=== PATIENT | male | born 1990 | race American Indian/Alaskan Native ===

== ENCOUNTER 2018-09-19 20:53 | Inpatient (IN) | payer OTHER ==
[2018-09-19] MEDS ORDERED: NACL 0.9% 1000 ML 1,000 ML IV ONE ×2 (21:06→21:11)
[2018-09-19] MEDS ORDERED: HumuLIN R IV ONE (21:06)
[2018-09-19] MEDS ORDERED: ZOFRAN IV ONE (21:08)
--- NOTE | 2018-09-19 21:11 | Emergency Department Report ---
ED General Adult HPI - General Chief complaint: Dyspnea/Respdistress Stated complaint: DIFFICULTY IN BREATHING, HYPERGLYCEMIA Time Seen by Provider: 09/19/18 21:03 Source: patient, EMS Mode of arrival: Stretcher Limitations: No Limitations - History of Present Illness Initial comments: Patient is 28 years old male with history of diabetes type 1 and hypertension. Patient stated that the last time he took his insulin was 3 weeks ago. Patient presented to the ER via EMS complaining of nausea vomiting for the last 3 days. Patient is also complaining of diffuse chest pain. Described his pain as sharp. He denied any fever or cough. Patient stated that he was recently released from residential. Severity scale (0 -10): 8 - Related Data Home Medications Medication Instructions Recorded Confirmed Last Taken Atorvastatin Calcium [Lipitor] 10 mg PO DAILY 09/19/18 09/19/18 Unknown Insulin NPH Hum/Reg Insulin Hm 20 - 26 unit SQ BID 09/19/18 09/19/18 Unknown [HumuLIN 70-30 Vial] Allergies Allergy/AdvReac Type Severity Reaction Status Date / Time No Known Allergies Allergy Unverified 09/19/18 20:58 ED Review of Systems ROS: Stated complaint: DIFFICULTY IN BREATHING, HYPERGLYCEMIA Other details as noted in HPI Comment: All other systems reviewed and negative Constitutional: denies: chills, fever Respiratory: shortness of breath. denies: cough, orthopnea, SOB with exertion, SOB at rest Cardiovascular: chest pain. denies: palpitations, dyspnea on exertion, orthopnea Gastrointestinal: nausea, vomiting. denies: abdominal pain, diarrhea, constipation, hematemesis, hematochezia Neurological: denies: headache ED Past Medical Hx - Past Medical History Previous Medical History?: Yes Hx Hypertension: Yes Hx Diabetes: Yes - Surgical History Past Surgical History?: No - Social History Smoking Status: Current Every Day Smoker Substance Use Type: Prescribed - Medications Home Medications: Home Medications Medication Instructions Recorded Confirmed Last Taken Type Atorvastatin Calcium [Lipitor] 10 mg PO DAILY 09/19/18 09/19/18 Unknown History Insulin NPH Hum/Reg Insulin Hm 20 - 26 unit SQ BID 09/19/18 09/19/18 Unknown History [HumuLIN 70-30 Vial] ED Physical Exam - General Limitations: No Limitations General appearance: alert, in distress (tachypneic) - Head Head exam: Present: atraumatic, normocephalic - Eye Eye exam: Present: normal appearance, PERRL - ENT ENT exam: Present: normal exam, normal orophraynx, mucous membranes dry - Neck Neck exam: Present: normal inspection, full ROM. Absent: tenderness, meningismus, lymphadenopathy, thyromegaly - Respiratory Respiratory exam: Present: normal lung sounds bilaterally. Absent: wheezes, rales - Cardiovascular Cardiovascular Exam: Present: regular rate, normal rhythm, normal heart sounds - GI/Abdominal GI/Abdominal exam: Present: soft, normal bowel sounds. Absent: distended, tenderness, guarding, rebound, rigid, organomegaly, mass, bruit, pulsatile mass , hernia - Extremities Exam Extremities exam: Present: normal inspection, full ROM, normal capillary refill. Absent: pedal edema, calf tenderness - Back Exam Back exam: Present: normal inspection, full ROM. Absent: tenderness, CVA tenderness (R), CVA tenderness (L), muscle spasm, paraspinal tenderness, vertebral tenderness - Neurological Exam Neurological exam: Present: alert, oriented X3, CN II-XII intact, normal gait, reflexes normal - Skin Skin exam: Present: warm, intact, normal color ED Course Vital Signs 09/19/18 09/19/18 09/19/18 20:59 21:00 21:30 Temperature 99.2 F Pulse Rate 94 H 94 H 106 H Respiratory 35 H 28 H 27 H Rate Blood Pressure 166/89 166/89 166/99 Blood Pressure 166/89 [Left] O2 Sat by Pulse 100 100 99 Oximetry 09/19/18 09/19/18 09/19/18 22:00 22:30 23:47 Temperature Pulse Rate 100 H 90 89 Respiratory 26 H 21 21 Rate Blood Pressure 160/95 152/90 Blood Pressure 145/77 [Left] O2 Sat by Pulse 100 99 Oximetry ED Medical Decision Making - Lab Data Result diagrams: 09/19/18 21:17 09/20/18 03:00 - EKG Data -: EKG Interpreted by De EKG shows normal: sinus rhythm Rate: normal - EKG Data 09/19/18 22:24 tall T. wave. - Radiology Data Radiology results: report reviewed Referring Physician: PORFIRIO LUCAS Patient Name: TOMI YANEZ Date of : 1990 Sex: Male Report Date: 2018-09-19 Report Status: Finalized Findings [facility] [address] [place] [address] XRay Report Signed Patient: TOMI YANEZ MR#: [id number] : 1990 Acct:[id number] Age/Sex: 28 / M ADM Date: 09/19/18 Loc: ED Attending Dr: Ordering Physician: PORFIRIO LUCAS Date of Service: 09/19/18 Procedure(s): XR chest 1V ap Accession Number(s): [id number] cc: PORFIRIO LUCAS Fluoro Time In Minutes: FINAL REPORT PROCEDURE: XR CHEST 1V AP TECHNIQUE: Chest radiograph anteroposterior view. CPT 46550 HISTORY: chest pain,sob COMPARISON: No prior studies are available for comparison. FINDINGS: Heart: Normal. Mediastinum/Vessels: Normal. Lungs/Pleural space: Normal. Bony thorax: No acute osseous abnormality. Life support devices: None. IMPRESSION: No acute cardiopulmonary abnormality. Transcribed By: [facility] [place]ictated By: CONNIE FIELDS Electronically Authenticated By: CONNIE FIELDS Signed Date/Time: 09/19/182152 DD/ 52 TD/TT: 09/19/182152 - Medical Decision Making Mr Yanez is 28 years old male with history of diabetes type 1 and hypertension. Patient stated that the last time he took insulin was 3 weeks ago. Patient presented to the ER via EMS complaining of nausea vomiting for the last 3 days. Patient is also complaining of diffuse chest pain. Described his pain as sharp. He denied any fever or cough. Patient stated that he was recently released from residential. Patient with a strong smell of acetone in the room. Patient immediately started on IV fluids, given Zofran started on an insulin drip. Patient denying diabetes. 9. I discussed the patient is Dr. Ofe Gonzales, should return to the patient to the ICU for diabetic ketoacidosis management. I also paged Dr. Corey from critical care for consultation. Critical Care Time: Yes Critical care time in (mins) excluding proc time.: 30 Critical care attestation.: If time is entered above; I have spent that time in minutes in the direct care of this critically ill patient, excluding procedure time. ED Disposition Clinical Impression: DKA (diabetic ketoacidoses), Chest pain, Vomiting Disposition: DC-09 OP ADMIT IP TO THIS HOSP Is pt being admited?: Yes Condition: Stable
[2018-09-19 21:23] LABS: Hematocrit 45.8 % (35.5-45.6); Hemoglobin 14.5 gm/dl (11.8-15.2); Mean Corpuscular HGB Conc 32 % (32-34); Mean Corpuscular Volume 81 fl (84-94); Platelet Count 367 K/mm3 (140-440); Red Blood Count 5.64 M/mm3 (3.65-5.03); Red Cell Distribution Width 13.7 % (13.2-15.2)
[2018-09-19] MEDS ORDERED: MORPHINE IV ONE (21:34)
[2018-09-19 21:38] LABS: Mean Corpuscular Hemoglobin 26 pg (28-32)
[2018-09-19 21:46] LABS: Alanine Aminotransferase 11 units/L (7-56); BUN/Creatinine Ratio 9; Blood Urea Nitrogen 14 mg/dL (9-20); Calcium 9.9 mg/dL (8.4-10.2); Hemolysis Index 1
[2018-09-19] MEDS ORDERED: ZOSYN/NS 4.5GM/100ML 4.5 GM/100 ML VIAL IV ONE (21:50)
[2018-09-19] MEDS ORDERED: D50W (25GM) Syringe IV PRN (21:50)
--- NOTE | 2018-09-19 21:53 | XRay Report ---
FINAL REPORT PROCEDURE: XR CHEST 1V AP TECHNIQUE: Chest radiograph anteroposterior view. CPT 92505 HISTORY: chest pain,sob COMPARISON: No prior studies are available for comparison. FINDINGS: Heart: Normal. Mediastinum/Vessels: Normal. Lungs/Pleural space: Normal. Bony thorax: No acute osseous abnormality. Life support devices: None. IMPRESSION: No acute cardiopulmonary abnormality.
[2018-09-19 22:29] LABS: Bilirubin,Direct < 0.2 mg/dL (0-0.2)
[2018-09-19 22:44] LABS: BUN/Creatinine Ratio 10; Blood Urea Nitrogen 13 mg/dL (9-20); Calcium 9.2 mg/dL (8.4-10.2); Hemolysis Index 12
[2018-09-19 23:18] LABS: Bilirubin,Urine NEG (Negative); Blood,Urine MOD (Negative); Color,Urine Straw (Yellow); Mucus,Urine FEW /HPF; Urobilinogen,Urine < 2.0 mg/dL (<2.0); WBC,Urine < 1.0 /HPF (0.0-6.0)
[2018-09-19] MEDS ORDERED: SODIUM CHLORIDE FLUSH SYRINGE 10 ML IV PRN (23:27)
[2018-09-19] MEDS ORDERED: ZOFRAN IV PRN (23:27)
[2018-09-19] MEDS ORDERED: MORPHINE IV PRN (23:27)
[2018-09-19] MEDS ORDERED: TYLENOL PO PRN (23:27)
--- NOTE | 2018-09-19 23:27 | History and Physical Report ---
History of Present Illness Date of examination: 09/19/18 History of present illness: 28-year-old male with a history of hypertension, diabetes, see emergency room with complaints of nausea vomiting. He has been out of his insulin for 2 weeks. Also complaining of pain in his epigastric area which she described as a sharp pain, constant, intensity 6/10, no radiation, cannot identify exacerbating or relieving factors. Complains of shortness breath, no diaphoresis or palpitation Review of systems Constitutional: no weight loss, chills, fever Ears, eyes, nose, mouth and throat: no nasal congestion, no nasal discharge, no sinus pressure, no vision change, no red eye. Neck: No neck pain or rigidity. Cardiovascular: no palpitations Respiratory: no cough Genitourinary : no frequency , no hematuria Musculoskeletal: no joint swelling or muscle ache Integumentary: no rash, no pruritis Neurological: no parathesias, no numbness, no focal weakness Endocrine: no cold or heat intolerance, no polyuria or polydipsia Hematologic/Lymphatic: no easy bruising, no easy bleeding, no gland swelling Allergic/Immunologic: no urticaria, no angioedema. PAST MEDICAL HISTORY: Hypertension, diabetes PAST SURGICAL HISTORY: None SOCIAL HISTORY: No alcohol, no drugs, tobacco FAMILY HISTORY: Hypertension, diabetes Medications and Allergies Allergies Allergy/AdvReac Type Severity Reaction Status Date / Time No Known Allergies Allergy Unverified 09/19/18 20:58 Home Medications Medication Instructions Recorded Confirmed Last Taken Type Atorvastatin Calcium [Lipitor] 10 mg PO DAILY 09/19/18 09/19/18 Unknown History Insulin NPH Hum/Reg Insulin Hm 20 - 26 unit SQ BID 09/19/18 09/19/18 Unknown History [HumuLIN 70-30 Vial] Active Meds: Active Medications Dextrose (D50w (25gm) Syringe) 0 ml IV PRN PRN PRN Reason: Hypoglycemia Insulin Human Regular 100 (units/ Sodium Chloride) 100 mls @ 1 mls/hr IV TITR GURWINDER; Protocol Exam - Physical Exam Narrative exam: Gen. appearance: Patient lying in bed, no apparent distress HEENT: Normocephalic, atraumatic, pupils equally round and reactive to light, extraocular movement intact, and no sclericterus,. No JVD or thyromegaly or nodule,neck supple, no carotid bruit ,mucous membranes dry no exudate or erythema Heart: S1, S2, regular rate and rhythm Lungs: Clear bilaterally, breathing comfortable Abdomen: Positive bowel sounds, non-tender, nondistended, no organomegaly Extremity:no edema cyanosis, clubbing Skin: no rash, dry, warm Neuro: Oriented 3, cranial nerves II-12 intact, speech is fluent, motor and sensory intact - Constitutional Vitals: Temp Pulse Resp BP Pulse Ox 99.2 F 90 21 152/90 100 09/19/18 20:59 09/19/18 22:30 09/19/18 22:30 09/19/18 22:30 09/19/18 22:30 Results - Labs CBC & Chem 7: 09/19/18 21:17 09/19/18 21:58 Labs: Abnormal lab results 09/19/18 09/19/18 09/19/18 Range/Units 21:17 21:17 21:58 WBC 21.6 H (4.5-11.0) K/mm3 RBC 5.64 H (3.65-5.03) M/mm3 Hct 45.8 H (35.5-45.6) % MCV 81 L (84-94) fl MCH 26 L (28-32) pg Sodium 128 L 128 L (137-145) mmol/L Potassium 5.4 H 5.2 H (3.6-5.0) mmol/L Chloride 88.0 L 92.9 L (98-107) mmol/L Carbon Dioxide 6 L* 4 L* (22-30) mmol/L Glucose 463 H 386 H (75-100) mg/dL POC Glucose (70-105) Alkaline Phosphatase 143 H (35-129) units/L Total Protein 9.2 H (6.3-8.2) g/dL 09/19/18 Range/Units 22:53 WBC (4.5-11.0) K/mm3 RBC (3.65-5.03) M/mm3 Hct (35.5-45.6) % MCV (84-94) fl MCH (28-32) pg Sodium (137-145) mmol/L Potassium (3.6-5.0) mmol/L Chloride (98-107) mmol/L Carbon Dioxide (22-30) mmol/L Glucose (75-100) mg/dL POC Glucose 298 H (70-105) Alkaline Phosphatase (35-129) units/L Total Protein (6.3-8.2) g/dL - Imaging and Cardiology EKG: image reviewed Chest x-ray: image reviewed Assessment and Plan Assessment DKA Metabolic acidosis severe, SIRS Chest pain Plan Admit to medicine Start DKA protocol with insulin drip, IV fluid Check serial chemistry, hemoglobin A1c Started peritoneal Zosyn, follow cultures Check cardiac enzymes, d-dimer, consult cardiology DVT prophylaxis
[2018-09-19] MEDS: HumuLIN R 100 UNITS in NACL 0.9% 99 ML IV SCH (23:29)
[2018-09-19 23:35] LABS: Band Neutrophils # (Manual) 0.2 K/mm3; Basophils % (Manual) 0 % (0.0-1.8); Eosinophils % (Manual) 0 % (0.0-4.3); Platelet Estimate Consistent w Auto; RBC Morphology Normal; Total Cells Counted 100
[2018-09-19] MEDS ORDERED: NACL 0.9% 1000 ML 1,000 ML IV SCH (23:45)
[2018-09-20 00:10] LABS: Creatine Kinase MB 3.3 ng/mL (0.0-4.0)
[2018-09-20] MEDS: HumuLIN R 100 UNITS in NACL 0.9% 99 ML IV SCH ×2 (00:30→18:12)
[2018-09-20 01:50] LABS: BUN/Creatinine Ratio 10; Blood Urea Nitrogen 13 mg/dL (9-20); Calcium 8.8 mg/dL (8.4-10.2); Hemolysis Index 1
[2018-09-20] MEDS ORDERED: SODIUM BICARBONATE IV ONE (02:22)
[2018-09-20 03:50] LABS: BUN/Creatinine Ratio 10; Blood Urea Nitrogen 13 mg/dL (9-20); Calcium 8.6 mg/dL (8.4-10.2); Hemolysis Index 3
[2018-09-20 03:51] LABS: BUN/Creatinine Ratio 9; Blood Urea Nitrogen 12 mg/dL (9-20); Calcium 8.6 mg/dL (8.4-10.2); Hemolysis Index 9
[2018-09-20] MEDS: D5/0.45NS 1,000 ML IV SCH ×4 (04:02→23:41)
--- NOTE | 2018-09-20 04:06 | Cat Scan Report ---
FINAL REPORT EXAM: CT ANGIO CHEST HISTORY: EVAL foe=r PE TECHNIQUE: A CT angiogram was performed following the intravenous injection of 100 cc of Omnipaque 350. Rotational, sagittal, and coronal MIP reconstructions were reviewed. FINDINGS: The lungs are clear. There is no evidence of congestion. There no evidence of pulmonary embolus or aortic dissection. The heart size is normal. The thoracic aorta is normal in configuration. There is no evidence of pericardial effusion or adenopathy. Pleural fluid is not seen. At the thoracic inlet the thyroid gland appears normal. The skeletal structures appear well maintained. In the upper abdomen the adrenal glands appear normal. IMPRESSION: No evidence of pulmonary embolus, aortic dissection, or vascular congestion. No acute process in the chest.
[2018-09-20] MEDS ORDERED: ZOSYN/NS 4.5GM/100ML 4.5 GM/100 ML VIAL IV SCH (06:00)
[2018-09-20 06:05] LABS: BUN/Creatinine Ratio 10; Blood Urea Nitrogen 11 mg/dL (9-20); Calcium 8.7 mg/dL (8.4-10.2); Hemolysis Index 13
[2018-09-20 08:34] LABS: BUN/Creatinine Ratio 10; Blood Urea Nitrogen 11 mg/dL (9-20); Calcium 8.7 mg/dL (8.4-10.2); Hemolysis Index 2
[2018-09-20] MEDS: LOVENOX SUB-Q SCH (09:45)
[2018-09-20] MEDS: SODIUM CHLORIDE FLUSH SYRINGE 10 ML IV SCH ×2 (09:45→21:00)
--- NOTE | 2018-09-20 10:13 | Progress Note ---
Assessment and Plan Assessment and plan: Patient is a 28 yo man with a history of Type 1 DM, dlp and hypertension who pw n/v and epigastric abd pains. Patient has not been taking his Insulin. * pCXR IMPRESSION: No acute cardiopulmonary abnormality. * CTA chest IMPRESSION: No evidence of pulmonary embolus, aortic dissection, or vascular congestion. No acute process in the chest. N/V abd pains, suspect Gastritis: treat symptomatically with PPI and IV antiemetics prn DKA, still acidotic: adjust Insulin drip with close monitoring, asked the nurse to add Potassium to IVF Metabolic acidosis severe: treat with ivf, iv insulin, repeat bmp SIRS with leukocytosis, negative cxr, ua unremarkable for uti, will repeat Chest pain, atypical, GERD/gastritis related most likely, resolved DVT prophylaxis: sq lovenox Noncompliance: counseling done CCT 32 minutes History Interval history: Patient was seen and examined. Follow-up on current diagnosis of n/v/ap, which has improved. Overnight uneventful. Patient denies any chest pain, shortness breath, nausea/vomiting or severe headaches. Imaging, nursing note, chart, labs and old chart reviewed. Discussed with patient. Hospitalist Physical - Physical exam Narrative exam: GEN: WDWN, NAD, Awake, Alert, Orientated x 3 HEENT: NCAT, EOMI, PERRL, OP Clear NECK: supple, no adenopathy, no thyromegaly, no JVD CVS/HEART: RRR, normal S1S2, pulses present bilaterally CHEST/LUNGS: CTA B, Symmetrical chest expansion, good air entry bilaterally GI/Abdomen: soft, NTND, good bowel sounds, no guarding or rebound /Bladder: no suprapubic tenderness, no CVA or paraspinal tenderness EXT/Skin: no c/c/e, no obvious rash MSK: FROM x 4 Neuro: CN 2-12 grossly intact, no new focal deficits - Constitutional Vitals: Temp Pulse Resp BP Pulse Ox 98.0 F 84 14 145/77 99 09/20/18 07:59 09/20/18 04:25 09/20/18 08:00 09/19/18 23:47 09/20/18 08:00 Results - Labs CBC & Chem 7: 09/19/18 21:17 09/20/18 07:26 Labs: Laboratory Last Values WBC 21.6 K/mm3 (4.5-11.0) H 09/19/18 21:17 RBC 5.64 M/mm3 (3.65-5.03) H 09/19/18 21:17 Hgb 14.5 gm/dl (11.8-15.2) 09/19/18 21:17 Hct 45.8 % (35.5-45.6) H 09/19/18 21:17 MCV 81 fl (84-94) L 09/19/18 21:17 MCH 26 pg (28-32) L 09/19/18 21:17 MCHC 32 % (32-34) 09/19/18 21:17 RDW 13.7 % (13.2-15.2) 09/19/18 21:17 Plt Count 367 K/mm3 (140-440) 09/19/18 21:17 Add Manual Diff Complete 09/19/18 21:17 Total Counted 100 09/19/18 21:17 Seg Neutrophils % Hot Box Spotter 09/19/18 21:17 Seg Neuts % (Manual) 91.0 % (40.0-70.0) H 09/19/18 21:17 Band Neutrophils % 1.0 % 09/19/18 21:17 Lymphocytes % (Manual) 6.0 % (13.4-35.0) L 09/19/18 21:17 Reactive Lymphs % (Man) 0 % 09/19/18 21:17 Monocytes % (Manual) 2.0 % (0.0-7.3) 09/19/18 21:17 Eosinophils % (Manual) 0 % (0.0-4.3) 09/19/18 21:17 Basophils % (Manual) 0 % (0.0-1.8) 09/19/18 21:17 Metamyelocytes % 0 % 09/19/18 21:17 Myelocytes % 0 % 09/19/18 21:17 Promyelocytes % 0 % 09/19/18 21:17 Blast Cells % 0 % 09/19/18 21:17 Nucleated RBC % Not Reportable 09/19/18 21:17 Seg Neutrophils # Man 19.7 K/mm3 (1.8-7.7) H 09/19/18 21:17 Band Neutrophils # 0.2 K/mm3 09/19/18 21:17 Lymphocytes # (Manual) 1.3 K/mm3 (1.2-5.4) 09/19/18 21:17 Abs React Lymphs (Man) 0.0 K/mm3 09/19/18 21:17 Monocytes # (Manual) 0.4 K/mm3 (0.0-0.8) 09/19/18 21:17 Eosinophils # (Manual) 0.0 K/mm3 (0.0-0.4) 09/19/18 21:17 Basophils # (Manual) 0.0 K/mm3 (0.0-0.1) 09/19/18 21:17 Metamyelocytes # 0.0 K/mm3 09/19/18 21:17 Myelocytes # 0.0 K/mm3 09/19/18 21:17 Promyelocytes # 0.0 K/mm3 09/19/18 21:17 Blast Cells # 0.0 K/mm3 09/19/18 21:17 WBC Morphology Not Reportable 09/19/18 21:17 Hypersegmented Neuts Not Reportable 09/19/18 21:17 Hyposegmented Neuts Not Reportable 09/19/18 21:17 Hypogranular Neuts Not Reportable 09/19/18 21:17 Smudge Cells Not Reportable 09/19/18 21:17 Toxic Granulation Not Reportable 09/19/18 21:17 Toxic Vacuolation Not Reportable 09/19/18 21:17 Dohle Bodies Not Reportable 09/19/18 21:17 Pelger-Huet Anomaly Not Reportable 09/19/18 21:17 Abel Rods Not Reportable 09/19/18 21:17 Platelet Estimate Consistent w auto 09/19/18 21:17 Clumped Platelets Not Reportable 09/19/18 21:17 Plt Clumps, EDTA Not Reportable 09/19/18 21:17 Large Platelets Not Reportable 09/19/18 21:17 Giant Platelets Not Reportable 09/19/18 21:17 Platelet Satelliting Not Reportable 09/19/18 21:17 Plt Morphology Comment Not Reportable 09/19/18 21:17 RBC Morphology Normal 09/19/18 21:17 Dimorphic RBCs Not Reportable 09/19/18 21:17 Polychromasia Not Reportable 09/19/18 21:17 Hypochromasia Not Reportable 09/19/18 21:17 Poikilocytosis Not Reportable 09/19/18 21:17 Anisocytosis Not Reportable 09/19/18 21:17 Microcytosis Not Reportable 09/19/18 21:17 Macrocytosis Not Reportable 09/19/18 21:17 Spherocytes Not Reportable 09/19/18 21:17 Pappenheimer Bodies Not Reportable 09/19/18 21:17 Sickle Cells Not Reportable 09/19/18 21:17 Target Cells Not Reportable 09/19/18 21:17 Tear Drop Cells Not Reportable 09/19/18 21:17 Ovalocytes Not Reportable 09/19/18 21:17 Helmet Cells Not Reportable 09/19/18 21:17 Vo-Freeman Bodies Not Reportable 09/19/18 21:17 Indiahoma Rings Not Reportable 09/19/18 21:17 Medford Cells Not Reportable 09/19/18 21:17 Bite Cells Not Reportable 09/19/18 21:17 Crenated Cell Not Reportable 09/19/18 21:17 Elliptocytes Not Reportable 09/19/18 21:17 Acanthocytes (Spur) Not Reportable 09/19/18 21:17 Rouleaux Not Reportable 09/19/18 21:17 Hemoglobin C Crystals Not Reportable 09/19/18 21:17 Schistocytes Not Reportable 09/19/18 21:17 Malaria parasites Not Reportable 09/19/18 21:17 Miki Bodies Not Reportable 09/19/18 21:17 Hem Pathologist Commnt No 09/19/18 21:17 D-Dimer 450.74 ng/mlDDU (0-234) H 09/20/18 00:55 Sodium 137 mmol/L (137-145) 09/20/18 07:26 Potassium 3.9 mmol/L (3.6-5.0) 09/20/18 07:26 Chloride 103.6 mmol/L (98-107) 09/20/18 07:26 Carbon Dioxide 14 mmol/L (22-30) L 09/20/18 07:26 Anion Gap 23 mmol/L 09/20/18 07:26 BUN 11 mg/dL (9-20) 09/20/18 07:26 Creatinine 1.1 mg/dL (0.8-1.5) 09/20/18 07:26 Estimated GFR > 60 ml/min 09/20/18 07:26 BUN/Creatinine Ratio 10 % 09/20/18 07:26 Glucose 141 mg/dL (75-100) H 09/20/18 07:26 POC Glucose 172 (70-105) H 09/20/18 09:59 Hemoglobin A1c 13.9 % (4-6) H 09/19/18 Unknown Calcium 8.7 mg/dL (8.4-10.2) 09/20/18 07:26 Phosphorus 3.90 mg/dL (2.5-4.5) 09/19/18 21:58 Magnesium 2.20 mg/dL (1.7-2.3) 09/19/18 21:58 Total Bilirubin 0.40 mg/dL (0.1-1.2) 09/19/18 21:17 Direct Bilirubin < 0.2 mg/dL (0-0.2) 09/19/18 21:17 AST 14 units/L (5-40) 09/19/18 21:17 ALT 11 units/L (7-56) 09/19/18 21:17 Alkaline Phosphatase 143 units/L (35-129) H 09/19/18 21:17 Total Creatine Kinase 115 units/L (55-170) 09/20/18 05:13 CK-MB (CK-2) 3.0 ng/mL (0.0-4.0) 09/20/18 05:13 CK-MB (CK-2) Rel Index 2.6 (0-4) 09/20/18 05:13 Troponin T < 0.010 ng/mL (0.00-0.029) 09/20/18 05:13 Total Protein 9.2 g/dL (6.3-8.2) H 09/19/18 21:17 Albumin 5.0 g/dL (3.9-5) 09/19/18 21:17 Albumin/Globulin Ratio 1.2 % 09/19/18 21:17 Lipase 18 units/L (13-60) 09/19/18 21:17 Urine Color Straw (Yellow) 09/19/18 22:55 Urine Turbidity Clear (Clear) 09/19/18 22:55 Urine pH 5.0 (5.0-7.0) 09/19/18 22:55 Ur Specific [place] 1.024 (1.003-1.030) 09/19/18 22:55 Urine Protein 100 mg/dl mg/dL (Negative) 09/19/18 22:55 Urine Glucose (UA) >=500 mg/dL (Negative) 09/19/18 22:55 Urine Ketones 80 mg/dL (Negative) 09/19/18 22:55 Urine Blood Mod (Negative) 09/19/18 22: Urine Nitrite Neg (Negative) 09/19/18: Urine Bilirubin Neg (Negative) 09/19/18: Urine Urobilinogen < 2.0 mg/dL (<2.0) 09/19/18 22:55 Ur Leukocyte Esterase Neg (Negative) 09/19/18 22:55 Urine WBC (Auto) < 1.0 /HPF (0.0-6.0) 09/19/18 22:55 Urine RBC (Auto) 1.0 /HPF (0.0-6.0) 09/19/18 22: Urine Mucus Few /HPF 09/19/18 22:55
--- NOTE | 2018-09-20 12:09 | Consultation ---
History of Present Illness Consult date: 09/20/18 Consult reason: chest pain History of present illness: This is a 28yr old male with a history of hypertension, diabetes who presented with epigastric pain with nausea vomiting and chest pain. He describes his chest pain as a sense of burning during and after drinking liquids. Cardiac consultation was requested. Initial labs revealed multiple metabolic abnormalities including DKA. He is currently on intravenous insulin drip. Patient reports he has been noncompliant with his medications for several weeks. Today, he is resting in bed and appears comfortably. He reports his chest pain has resolved. He has no shortness of breath or palpitations. He denies nausea and his vomiting has resolved. His ECG shows a sinus rhythm with tall Twaves, no acute ischemic changes. Medications and Allergies Allergies Allergy/AdvReac Type Severity Reaction Status Date / Time No Known Allergies Allergy Unverified 09/19/18 20:58 Home Medications Medication Instructions Recorded Confirmed Last Taken Type Atorvastatin Calcium [Lipitor] 10 mg PO DAILY 09/19/18 09/19/18 Unknown History Insulin NPH Hum/Reg Insulin Hm 20 - 26 unit SQ BID 09/19/18 09/19/18 Unknown History [HumuLIN 70-30 Vial] Active Meds: Active Medications Acetaminophen (Tylenol) 650 mg PO Q4H PRN PRN Reason: Pain MILD(1-3)/Fever >100.5/MIRZA Dextrose (D50w (25gm) Syringe) 0 ml IV PRN PRN PRN Reason: Hypoglycemia Enoxaparin Sodium (Lovenox) 40 mg SUB-Q QDAY GURWINDER Last Admin: 09/20/18 09:45 Dose: 40 mg Insulin Human Regular 100 (units/ Sodium Chloride) 100 mls @ 1 mls/hr IV TITR GURWINDER; Protocol Last Titration: 09/20/18 12:01 Dose: 4 units/hr, 4 mls/hr Dextrose/Sodium Chloride (D5/0.45ns) 1,000 mls @ 150 mls/hr IV DIRECT GURWINDER Last Admin: 09/20/18 11:11 Dose: 150 mls/hr Sodium Chloride (Nacl 0.9% 1000 Ml) 1,000 mls @ 150 mls/hr IV DIRECT GURWINDER Last Infusion: 09/20/18 04:02 Dose: 0 mls/hr Morphine Sulfate (Morphine) 2 mg IV Q4H PRN PRN Reason: Pain, Moderate (4-6) Last Admin: 09/20/18 00:45 Dose: 2 mg Ondansetron HCl (Zofran) 4 mg IV Q4H PRN PRN Reason: Nausea And Vomiting Sodium Chloride (Sodium Chloride Flush Syringe 10 Ml) 10 ml IV BID GURWINDER Last Admin: 09/20/18 09:45 Dose: 10 ml Sodium Chloride (Sodium Chloride Flush Syringe 10 Ml) 10 ml IV PRN PRN PRN Reason: LINE FLUSH Physical Examination Vital Signs Temp Pulse Resp BP Pulse Ox 99.2 F 94 H 35 H 166/89 100 09/19/18 20:59 09/19/18 20:59 09/19/18 20:59 09/19/18 20:59 09/19/18 20:59 General appearance: no acute distress HEENT: Positive: PERRL Neck: Positive: trachea midline Cardiac: Positive: Reg Rate and Rhythm Lungs: Positive: Decreased Breath Sounds Neuro: Positive: Grossly Intact Extremities: Absent: edema Results 09/19/18 21:17 09/20/18 07:26 Cardiac Enzymes 09/19/18 09/19/18 09/20/18 Range/Units 21:17 23:41 05:13 AST 14 (5-40) units/L CK-MB (CK-2) 3.3 3.0 (0.0-4.0) ng/mL CBC 09/19/18 Range/Units 21:17 WBC 21.6 H (4.5-11.0) K/mm3 RBC 5.64 H (3.65-5.03) M/mm3 Hgb 14.5 (11.8-15.2) gm/dl Hct 45.8 H (35.5-45.6) % Plt Count 367 (140-440) K/mm3 Comprehensive Metabolic Panel 09/19/18 09/19/18 09/20/18 Range/Units 21:17 21:58 00:55 Sodium 128 L 128 L 130 L (137-145) mmol/L Potassium 5.4 H 5.2 H 5.3 H (3.6-5.0) mmol/L Chloride 88.0 L 92.9 L 97.3 L (98-107) mmol/L Carbon Dioxide 6 L* 4 L* 4 L* (22-30) mmol/L BUN 14 13 13 (9-20) mg/dL Creatinine 1.5 1.3 1.3 (0.8-1.5) mg/dL Glucose 463 H 386 H 336 H (75-100) mg/dL Calcium 9.9 9.2 8.8 (8.4-10.2) mg/dL Direct Bilirubin < 0.2 (0-0.2) mg/dL AST 14 (5-40) units/L ALT 11 (7-56) units/L Alkaline Phosphatase 143 H (35-129) units/L Total Protein 9.2 H (6.3-8.2) g/dL Albumin 5.0 (3.9-5) g/dL 09/20/18 09/20/18 09/20/18 Range/Units 01:56 03:00 05:13 Sodium 131 L 135 L 134 L (137-145) mmol/L Potassium 4.8 4.6 3.9 (3.6-5.0) mmol/L Chloride 99.0 100.8 102.3 (98-107) mmol/L Carbon Dioxide 6 L* 10 L 10 L (22-30) mmol/L BUN 13 12 11 (9-20) mg/dL Creatinine 1.3 1.3 1.1 (0.8-1.5) mg/dL Glucose 253 H 219 H 177 H (75-100) mg/dL Calcium 8.6 8.6 8.7 (8.4-10.2) mg/dL Direct Bilirubin (0-0.2) mg/dL AST (5-40) units/L ALT (7-56) units/L Alkaline Phosphatase (35-129) units/L Total Protein (6.3-8.2) g/dL Albumin (3.9-5) g/dL 09/20/18 Range/Units 07:26 Sodium 137 (137-145) mmol/L Potassium 3.9 (3.6-5.0) mmol/L Chloride 103.6 (98-107) mmol/L Carbon Dioxide 14 L (22-30) mmol/L BUN 11 (9-20) mg/dL Creatinine 1.1 (0.8-1.5) mg/dL Glucose 141 H (75-100) mg/dL Calcium 8.7 (8.4-10.2) mg/dL Direct Bilirubin (0-0.2) mg/dL AST (5-40) units/L ALT (7-56) units/L Alkaline Phosphatase (35-129) units/L Total Protein (6.3-8.2) g/dL Albumin (3.9-5) g/dL Assessment and Plan DKA Gastritis Leulocytosis Hypertension Noncompliant with medications
[2018-09-20 14:17] LABS: BUN/Creatinine Ratio 11; Blood Urea Nitrogen 10 mg/dL (9-20); Calcium 8.6 mg/dL (8.4-10.2); Hemolysis Index 30
--- NOTE | 2018-09-20 18:03 | Ultrasound Report ---
FINAL REPORT EXAM: US ABDOMEN LIMITED HISTORY: abdominal pain TECHNIQUE: Ultrasound examination of the abdomen PRIORS: None. FINDINGS: The visible portion of the following structures reveal: Ascites: None Liver: No focal lesion.No enlargement. Gallbladder: No pericholecystic fluid.No evidence of wall thickening.Nonspecific 4 mm minimally shadowing echogenic focus in the gallbladder neck dependent portion may be a tiny gallstone. Common bile duct: Normal caliber. Pancreas: No focal abnormality in the visible portion. Right kidney: No hydronephrosis.No solid mass.No definite calculus. Abdominal aorta: Normal caliber. IVC: Normal caliber. IMPRESSION: Nonspecific 4 mm minimally shadowing echogenic focus in the gallbladder neck dependent portion may be a tiny gallstone
[2018-09-20 23:41] LABS: BUN/Creatinine Ratio 10; Blood Urea Nitrogen 8 mg/dL (9-20); Calcium 8.7 mg/dL (8.4-10.2); Hemolysis Index 2
[2018-09-21] MEDS: D5W/0.45% NACL/KCL 20 MEQ 20 MEQ/1,000 ML BAG IV SCH ×2 (03:00→09:37)
--- NOTE | 2018-09-21 09:04 | Progress Note ---
Assessment and Plan DKA Epigastric pain -resolved Leukocytosis Hypertension Noncompliant with medications Conservative cardiac management. Subjective Date of service: 09/21/18 Interval history: Patient has no complaints. He denies chest pain and shortness of breath. Objective Vital Signs Temp Pulse Pulse Resp BP Pulse Ox 09/21/18 07:48 68 14 100 09/21/18 07:44 97.6 F 09/21/18 07:31 60 14 127/73 100 09/21/18 07:01 51 L 14 171/82 100 09/21/18 06:31 60 16 171/82 98 09/21/18 06:00 57 L 13 131/73 99 09/21/18 05:31 59 L 17 171/82 100 09/21/18 05:01 74 18 171/82 98 09/21/18 04:30 68 10 L 171/82 100 09/21/18 04:00 98.4 F 65 69 13 131/73 95 09/21/18 03:30 66 18 131/73 100 09/21/18 03:00 64 19 130/70 99 09/21/18 02:31 75 15 130/69 98 09/21/18 02:00 66 16 126/76 99 09/21/18 01:30 67 20 116/59 99 09/21/18 01:00 71 19 130/72 99 09/21/18 00:30 67 15 130/72 100 09/21/18 00:00 98.9 F 68 72 18 135/84 100 09/20/18 23:57 98.1 F 09/20/18 23:30 62 19 134/73 100 09/20/18 23:00 66 17 136/73 100 09/20/18 22:30 65 19 124/71 100 09/20/18 22:02 126/74 99 09/20/18 22:00 69 09/20/18 21:30 70 15 126/74 100 09/20/18 21:00 66 19 134/76 100 09/20/18 20:30 63 17 124/55 99 09/20/18 20:00 64 73 17 127/63 100 09/20/18 19:49 98.8 F 09/20/18 19:30 64 13 127/64 100 09/20/18 19:00 75 18 139/71 100 09/20/18 18:30 70 21 140/75 100 10/23/18 18:00 65 14 139/73 100 09/20/18 17:30 62 15 146/76 100 09/20/18 17:00 67 12 110/50 100 09/20/18 16:30 62 14 110/50 100 09/20/18 16:00 97.9 F 61 15 128/72 100 09/20/18 15:30 67 12 130/66 98 09/20/18 15:00 61 14 116/55 96 09/20/18 14:30 65 17 114/52 98 09/20/18 14:00 67 16 135/74 99 09/20/18 13:30 82 15 145/69 99 09/20/18 13:00 72 16 140/73 99 09/20/18 12:30 73 15 139/75 99 09/20/18 12:00 98.4 F 96 H 12 114/59 100 09/20/18 11:30 68 13 114/59 100 09/20/18 11:00 60 13 123/60 94 09/20/18 10:30 59 L 12 129/55 100 09/20/18 10:00 67 13 146/81 100 09/20/18 09:30 69 12 126/72 100 - Physical Examination General: No Apparent Distress HEENT: Positive: PERRL Neck: Positive: trachea midline Cardiac: Positive: Reg Rate and Rhythm Lungs: Positive: Decreased Breath Sounds Neuro: Positive: Grossly Intact Extremities: Absent: edema - Labs and Meds Comprehensive Metabolic Panel 09/20/18 09/20/18 Range/Units 13:31 22:50 Sodium 137 134 L (137-145) mmol/L Potassium 4.1 3.1 L D (3.6-5.0) mmol/L Chloride 103.9 101.4 (98-107) mmol/L Carbon Dioxide 15 L 18 L (22-30) mmol/L BUN 10 8 L (9-20) mg/dL Creatinine 0.9 0.8 (0.8-1.5) mg/dL Glucose 147 H 163 H (75-100) mg/dL Calcium 8.6 8.7 (8.4-10.2) mg/dL
[2018-09-21] MEDS: LOVENOX SUB-Q SCH (09:37)
[2018-09-21 10:03] LABS: BUN/Creatinine Ratio 10; Blood Urea Nitrogen 7 mg/dL (9-20); Calcium 8.4 mg/dL (8.4-10.2); Hemolysis Index 8
[2018-09-21] MEDS: SODIUM CHLORIDE FLUSH SYRINGE 10 ML IV SCH ×2 (10:39→22:23)
--- NOTE | 2018-09-21 12:35 | Progress Note ---
Assessment and Plan Assessment and plan: Patient is a 28 yo man with a history of Type 1 DM, dlp and hypertension who pw n/v and epigastric abd pains. Patient has not been taking his Insulin. * pCXR IMPRESSION: No acute cardiopulmonary abnormality. * CTA chest IMPRESSION: No evidence of pulmonary embolus, aortic dissection, or vascular congestion. No acute process in the chest. N/V abd pains, suspect Gastritis, resolved: treat symptomatically with PPI and IV antiemetics prn DKA, acidosis resolved, stop drip and start basal/bolus regimen Hypokalemia: replete and recheck in am Metabolic acidosis severe: treat with ivf, iv insulin, repeat bmp SIRS with leukocytosis, negative cxr, ua unremarkable for uti, will repeat cbc Chest pain, atypical, GERD/gastritis related most likely, resolved DVT prophylaxis: sq lovenox Noncompliance: counseling done Disposition; continue inpatient care but transfer out of the ICU today CCT 33 minutes History Interval history: Patient was seen and examined. Follow-up on current diagnosis of n/v/ap, which has resolved. Overnight uneventful. Patient denies any chest pain, shortness breath, nausea/vomiting or severe headaches. Imaging, nursing note, chart, labs and old chart reviewed. Discussed with patient. Patient is asking for food. Hospitalist Physical - Physical exam Narrative exam: GEN: WDWN, NAD, Awake, Alert, Orientated x 3 HEENT: NCAT, EOMI, PERRL, OP Clear NECK: supple, no adenopathy, no thyromegaly, no JVD CVS/HEART: RRR, normal S1S2, pulses present bilaterally CHEST/LUNGS: CTA B, Symmetrical chest expansion, good air entry bilaterally GI/Abdomen: soft, NTND, good bowel sounds, no guarding or rebound /Bladder: no suprapubic tenderness, no CVA or paraspinal tenderness EXT/Skin: no c/c/e, no obvious rash MSK: FROM x 4 Neuro: CN 2-12 grossly intact, no new focal deficits - Constitutional Vitals: Temp Pulse Resp BP Pulse Ox 98.3 F 68 19 96/67 94 09/21/18 12:00 09/21/18 11:31 09/21/18 11:31 09/21/18 11:31 09/21/18 11:31 General appearance: Present: no acute distress Results - Labs CBC & Chem 7: 09/19/18 21:17 09/21/18 08:53 Labs: Laboratory Last Values WBC 21.6 K/mm3 (4.5-11.0) H 09/19/18 21:17 RBC 5.64 M/mm3 (3.65-5.03) H 09/19/18 21:17 Hgb 14.5 gm/dl (11.8-15.2) 09/19/18 21:17 Hct 45.8 % (35.5-45.6) H 09/19/18 21:17 MCV 81 fl (84-94) L 09/19/18 21:17 MCH 26 pg (28-32) L 09/19/18 21:17 MCHC 32 % (32-34) 09/19/18 21:17 RDW 13.7 % (13.2-15.2) 09/19/18 21:17 Plt Count 367 K/mm3 (140-440) 09/19/18 21:17 Add Manual Diff Complete 09/19/18 21:17 Total Counted 100 09/19/18 21:17 Seg Neutrophils % [employer] Operator 09/19/18 21:17 Seg Neuts % (Manual) 91.0 % (40.0-70.0) H 09/19/18 21:17 Band Neutrophils % 1.0 % 09/19/18 21:17 Lymphocytes % (Manual) 6.0 % (13.4-35.0) L 09/19/18 21:17 Reactive Lymphs % (Man) 0 % 09/19/18 21:17 Monocytes % (Manual) 2.0 % (0.0-7.3) 09/19/18 21:17 Eosinophils % (Manual) 0 % (0.0-4.3) 09/19/18 21:17 Basophils % (Manual) 0 % (0.0-1.8) 09/19/18 21:17 Metamyelocytes % 0 % 09/19/18 21:17 Myelocytes % 0 % 09/19/18 21:17 Promyelocytes % 0 % 09/19/18 21:17 Blast Cells % 0 % 09/19/18 21:17 Nucleated RBC % Not Reportable 09/19/18 21:17 Seg Neutrophils # Man 19.7 K/mm3 (1.8-7.7) H 09/19/18 21:17 Band Neutrophils # 0.2 K/mm3 09/19/18 21:17 Lymphocytes # (Manual) 1.3 K/mm3 (1.2-5.4) 09/19/18 21:17 Abs React Lymphs (Man) 0.0 K/mm3 09/19/18 21:17 Monocytes # (Manual) 0.4 K/mm3 (0.0-0.8) 09/19/18 21:17 Eosinophils # (Manual) 0.0 K/mm3 (0.0-0.4) 09/19/18 21:17 Basophils # (Manual) 0.0 K/mm3 (0.0-0.1) 09/19/18 21:17 Metamyelocytes # 0.0 K/mm3 09/19/18 21:17 Myelocytes # 0.0 K/mm3 09/19/18 21:17 Promyelocytes # 0.0 K/mm3 09/19/18 21:17 Blast Cells # 0.0 K/mm3 09/19/18 21:17 WBC Morphology Not Reportable 09/19/18 21:17 Hypersegmented Neuts Not Reportable 09/19/18 21:17 Hyposegmented Neuts Not Reportable 09/19/18 21:17 Hypogranular Neuts Not Reportable 09/19/18 21:17 Smudge Cells Not Reportable 09/19/18 21:17 Toxic Granulation Not Reportable 09/19/18 21:17 Toxic Vacuolation Not Reportable 09/19/18 21:17 Dohle Bodies Not Reportable 09/19/18 21:17 Pelger-Huet Anomaly Not Reportable 09/19/18 21:17 Abel Rods Not Reportable 09/19/18 21:17 Platelet Estimate Consistent w auto 09/19/18 21:17 Clumped Platelets Not Reportable 09/19/18 21:17 Plt Clumps, EDTA Not Reportable 09/19/18 21:17 Large Platelets Not Reportable 09/19/18 21:17 Giant Platelets Not Reportable 09/19/18 21:17 Platelet Satelliting Not Reportable 09/19/18 21:17 Plt Morphology Comment Not Reportable 09/19/18 21:17 RBC Morphology Normal 09/19/18 21:17 Dimorphic RBCs Not Reportable 09/19/18 21:17 Polychromasia Not Reportable 09/19/18 21:17 Hypochromasia Not Reportable 09/19/18 21:17 Poikilocytosis Not Reportable 09/19/18 21:17 Anisocytosis Not Reportable 09/19/18 21:17 Microcytosis Not Reportable 09/19/18 21:17 Macrocytosis Not Reportable 09/19/18 21:17 Spherocytes Not Reportable 09/19/18 21:17 Pappenheimer Bodies Not Reportable 09/19/18 21:17 Sickle Cells Not Reportable 09/19/18 21:17 Target Cells Not Reportable 09/19/18 21:17 Tear Drop Cells Not Reportable 09/19/18 21:17 Ovalocytes Not Reportable 09/19/18 21:17 Helmet Cells Not Reportable 09/19/18 21:17 Vo-[place] Bodies Not Reportable 09/19/18 21:17 [place] Rings Not Reportable 09/19/18 21:17 [place] Cells Not Reportable 09/19/18 21:17 Bite Cells Not Reportable 09/19/18 21:17 Crenated Cell Not Reportable 09/19/18 21:17 Elliptocytes Not Reportable 09/19/18 21:17 Acanthocytes (Spur) Not Reportable 09/19/18 21:17 Rouleaux Not Reportable 09/19/18 21:17 Hemoglobin C Crystals Not Reportable 09/19/18 21:17 Schistocytes Not Reportable 09/19/18 21:17 Malaria parasites Not Reportable 09/19/18 21:17 Miki Bodies Not Reportable 09/19/18 21:17 Hem Pathologist Commnt No 09/19/18 21:17 D-Dimer 450.74 ng/mlDDU (0-234) H 09/20/18 00:55 Sodium 137 mmol/L (137-145) 09/21/18 08:53 Potassium 3.1 mmol/L (3.6-5.0) L 09/21/18 08:53 Chloride 104.4 mmol/L (98-107) 09/21/18 08:53 Carbon Dioxide 18 mmol/L (22-30) L 09/21/18 08:53 Anion Gap 18 mmol/L 09/21/18 08:53 BUN 7 mg/dL (9-20) L 09/21/18 08:53 Creatinine 0.7 mg/dL (0.8-1.5) L 09/21/18 08:53 Estimated GFR > 60 ml/min 09/21/18 08:53 BUN/Creatinine Ratio 10 % 09/21/18 08:53 Glucose 129 mg/dL (75-100) H 09/21/18 08:53 POC Glucose 151 (70-105) H 09/21/18 11:51 Hemoglobin A1c 13.9 % (4-6) H 09/19/18 Unknown Calcium 8.4 mg/dL (8.4-10.2) 09/21/18 08:53 Phosphorus 3.90 mg/dL (2.5-4.5) 09/19/18 21:58 Magnesium 2.20 mg/dL (1.7-2.3) 09/19/18 21:58 Total Bilirubin 0.40 mg/dL (0.1-1.2) 09/19/18 21:17 Direct Bilirubin < 0.2 mg/dL (0-0.2) 09/19/18 21:17 AST 14 units/L (5-40) 09/19/18 21:17 ALT 11 units/L (7-56) 09/19/18 21:17 Alkaline Phosphatase 143 units/L (35-129) H 09/19/18 21:17 Total Creatine Kinase 115 units/L (55-170) 09/20/18 05:13 CK-MB (CK-2) 3.0 ng/mL (0.0-4.0) 09/20/18 05:13 CK-MB (CK-2) Rel Index 2.6 (0-4) 09/20/18 05:13 Troponin T < 0.010 ng/mL (0.00-0.029) 09/20/18 05:13 Total Protein 9.2 g/dL (6.3-8.2) H 09/19/18 21:17 Albumin 5.0 g/dL (3.9-5) 09/19/18 21:17 Albumin/Globulin Ratio 1.2 % 09/19/18 21:17 Lipase 18 units/L (13-60) 09/19/18 21:17 Urine Color Straw (Yellow) 09/19/18 22:55 Urine Turbidity Clear (Clear) 09/19/18 22:55 Urine pH 5.0 (5.0-7.0) 09/19/18 22:55 Ur Specific [place] 1.024 (1.003-1.030) 09/19/18 22: Urine Protein 100 mg/dl mg/dL (Negative) 09/19/18 22: Urine Glucose (UA) >=500 mg/dL (Negative) 09/19/18 22: Urine Ketones 80 mg/dL (Negative) 09/19/18 22: Urine Blood Mod (Negative) 09/19/18 22: Urine Nitrite Neg (Negative) 09/19/18 22: Urine Bilirubin Neg (Negative) 09/19/18 22: Urine Urobilinogen < 2.0 mg/dL (<2.0) 09/19/18 22:55 Ur Leukocyte Esterase Neg (Negative) 09/19/18 22:55 Urine WBC (Auto) < 1.0 /HPF (0.0-6.0) 09/19/18 22:55 Urine RBC (Auto) 1.0 /HPF (0.0-6.0) 09/19/18 22:55 Urine Mucus Few /HPF 09/19/18 22:55
[2018-09-21] MEDS: K-DUR PO SCH ×2 (13:01→19:32)
[2018-09-21] MEDS: HumaLOG SUB-Q SCH ×2 (13:05→19:21)
[2018-09-21] MEDS ORDERED: K-DUR PO SCH (20:00)
[2018-09-22] MEDS: HumaLOG SUB-Q SCH ×4 (04:55→17:52)
[2018-09-22 05:39] LABS: Hematocrit 36.8 % (35.5-45.6); Hemoglobin 12.5 gm/dl (11.8-15.2); Mean Corpuscular HGB Conc 34 % (32-34); Mean Corpuscular Hemoglobin 26 pg (28-32); Mean Corpuscular Volume 77 fl (84-94); Platelet Count 316 K/mm3 (140-440); Red Blood Count 4.76 M/mm3 (3.65-5.03); Red Cell Distribution Width 13.2 % (13.2-15.2)
[2018-09-22 06:02] LABS: BUN/Creatinine Ratio 12; Blood Urea Nitrogen 7 mg/dL (9-20); Calcium 8.7 mg/dL (8.4-10.2); Hemolysis Index 1
[2018-09-22] MEDS: LOVENOX SUB-Q SCH (09:32)
--- NOTE | 2018-09-22 10:48 | Progress Note ---
Assessment and Plan DKA Epigastric pain -resolved Leukocytosis Hypertension Noncompliant with medications Echocardiogram for LVEF assessment. Subjective Date of service: 09/22/18 Interval history: No cardiac events reported overnight. Objective Vital Signs Temp Pulse Resp BP Pulse Ox 09/22/18 00:00 98.0 F 64 20 137/83 100 09/21/18 22:00 100 09/21/18 13:41 70 10 L 137/91 97 09/21/18 13:31 67 12 137/91 99 09/21/18 13:00 69 18 137/91 100 09/21/18 12:31 64 13 139/85 100 09/21/18 12:00 98.3 F 70 23 139/85 100 09/21/18 11:31 68 19 96/67 94 09/21/18 11:00 63 18 141/77 99 - Physical Examination General: No Apparent Distress HEENT: Positive: PERRL Neck: Positive: trachea midline Cardiac: Positive: Reg Rate and Rhythm Neuro: Positive: Grossly Intact Extremities: Absent: edema - Labs and Meds CBC 09/22/18 Range/Units 04:53 WBC 6.6 (4.5-11.0) K/mm3 RBC 4.76 (3.65-5.03) M/mm3 Hgb 12.5 (11.8-15.2) gm/dl Hct 36.8 D (35.5-45.6) % Plt Count 316 (140-440) K/mm3 Comprehensive Metabolic Panel 09/22/18 Range/Units 04:53 Sodium 138 (137-145) mmol/L Potassium 3.4 L (3.6-5.0) mmol/L Chloride 105.9 (98-107) mmol/L Carbon Dioxide 19 L (22-30) mmol/L BUN 7 L (9-20) mg/dL Creatinine 0.6 L (0.8-1.5) mg/dL Glucose 201 H (75-100) mg/dL Calcium 8.7 (8.4-10.2) mg/dL - Imaging and Cardiology EKG: image reviewed
[2018-09-22] MEDS ORDERED: K-DUR PO ONE ×2 (11:00→14:00)
[2018-09-22] MEDS: SODIUM CHLORIDE FLUSH SYRINGE 10 ML IV SCH (12:28)
--- NOTE | 2018-09-22 13:28 | Progress Note ---
Assessment and Plan Assessment and plan: Patient is a 28 yo man with a history of Type 1 DM, dlp and hypertension who pw n/v and epigastric abd pains. Patient has not been taking his Insulin. * pCXR IMPRESSION: No acute cardiopulmonary abnormality. * CTA chest IMPRESSION: No evidence of pulmonary embolus, aortic dissection, or vascular congestion. No acute process in the chest. N/V abd pains, suspect Gastritis, resolved: treat symptomatically with PPI and IV antiemetics prn DKA, acidosis resolved, stop drip and start basal/bolus regimen Hypokalemia: replete and recheck in am Metabolic acidosis severe: treat with ivf, iv insulin, repeat bmp SIRS with leukocytosis, negative cxr, ua unremarkable for uti, will repeat cbc Chest pain, atypical, GERD/gastritis related most likely, resolved DVT prophylaxis: sq lovenox Noncompliance: counseling done Disposition; continue inpatient care, d/c once Cleared by machine cloth examiner, ECHO pending History Interval history: Patient was seen and examined. Follow-up on current diagnosis of n/v/ap, which has resolved. Overnight uneventful. Patient denies any chest pain, shortness breath, nausea/vomiting or severe headaches. Imaging, nursing note, chart, labs and old chart reviewed. Discussed with patient. Hospitalist Physical - Physical exam Narrative exam: GEN: WDWN, NAD, Awake, Alert, Orientated x 3 HEENT: NCAT, EOMI, PERRL, OP Clear NECK: supple, no adenopathy, no thyromegaly, no JVD CVS/HEART: RRR, normal S1S2, pulses present bilaterally CHEST/LUNGS: CTA B, Symmetrical chest expansion, good air entry bilaterally GI/Abdomen: soft, NTND, good bowel sounds, no guarding or rebound /Bladder: no suprapubic tenderness, no CVA or paraspinal tenderness EXT/Skin: no c/c/e, no obvious rash MSK: FROM x 4 Neuro: CN 2-12 grossly intact, no new focal deficits - Constitutional Vitals: Temp Pulse Resp BP Pulse Ox 98.8 F 62 20 136/84 100 09/22/18 11:57 09/22/18 11:57 09/22/18 11:57 09/22/18 11:57 09/22/18 11:57 General appearance: Present: no acute distress Results - Labs CBC & Chem 7: 09/22/18 04:53 09/22/18 04:53 Labs: Laboratory Last Values WBC 6.6 K/mm3 (4.5-11.0) 09/22/18 04:53 RBC 4.76 M/mm3 (3.65-5.03) 09/22/18 04:53 Hgb 12.5 gm/dl (11.8-15.2) 09/22/18 04:53 Hct 36.8 % (35.5-45.6) D 09/22/18 04:53 MCV 77 fl (84-94) L 09/22/18 04:53 MCH 26 pg (28-32) L 09/22/18 04:53 MCHC 34 % (32-34) 09/22/18 04:53 RDW 13.2 % (13.2-15.2) 09/22/18 04:53 Plt Count 316 K/mm3 (140-440) 09/22/18 04:53 Add Manual Diff Complete 09/19/18 21:17 Total Counted 100 09/19/18 21:17 Seg Neutrophils % Wringer Operator 09/19/18 21:17 Seg Neuts % (Manual) 91.0 % (40.0-70.0) H 09/19/18 21:17 Band Neutrophils % 1.0 % 09/19/18 21:17 Lymphocytes % (Manual) 6.0 % (13.4-35.0) L 09/19/18 21:17 Reactive Lymphs % (Man) 0 % 09/19/18 21:17 Monocytes % (Manual) 2.0 % (0.0-7.3) 09/19/18 21:17 Eosinophils % (Manual) 0 % (0.0-4.3) 09/19/18 21:17 Basophils % (Manual) 0 % (0.0-1.8) 09/19/18 21:17 Metamyelocytes % 0 % 09/19/18 21:17 Myelocytes % 0 % 09/19/18 21:17 Promyelocytes % 0 % 09/19/18 21:17 Blast Cells % 0 % 09/19/18 21:17 Nucleated RBC % Not Reportable 09/19/18 21:17 Seg Neutrophils # Man 19.7 K/mm3 (1.8-7.7) H 09/19/18 21:17 Band Neutrophils # 0.2 K/mm3 09/19/18 21:17 Lymphocytes # (Manual) 1.3 K/mm3 (1.2-5.4) 09/19/18 21:17 Abs React Lymphs (Man) 0.0 K/mm3 09/19/18 21:17 Monocytes # (Manual) 0.4 K/mm3 (0.0-0.8) 09/19/18 21:17 Eosinophils # (Manual) 0.0 K/mm3 (0.0-0.4) 09/19/18 21:17 Basophils # (Manual) 0.0 K/mm3 (0.0-0.1) 09/19/18 21:17 Metamyelocytes # 0.0 K/mm3 09/19/18 21:17 Myelocytes # 0.0 K/mm3 09/19/18 21:17 Promyelocytes # 0.0 K/mm3 09/19/18 21:17 Blast Cells # 0.0 K/mm3 09/19/18 21:17 WBC Morphology Not Reportable 09/19/18 21:17 Hypersegmented Neuts Not Reportable 09/19/18 21:17 Hyposegmented Neuts Not Reportable 09/19/18 21:17 Hypogranular Neuts Not Reportable 09/19/18 21:17 Smudge Cells Not Reportable 09/19/18 21:17 Toxic Granulation Not Reportable 09/19/18 21:17 Toxic Vacuolation Not Reportable 09/19/18 21:17 Dohle Bodies Not Reportable 09/19/18 21:17 Pelger-Huet Anomaly Not Reportable 09/19/18 21:17 Abel Rods Not Reportable 09/19/18 21:17 Platelet Estimate Consistent w auto 09/19/18 21:17 Clumped Platelets Not Reportable 09/19/18 21:17 Plt Clumps, EDTA Not Reportable 09/19/18 21:17 Large Platelets Not Reportable 09/19/18 21:17 Giant Platelets Not Reportable 09/19/18 21:17 Platelet Satelliting Not Reportable 09/19/18 21:17 Plt Morphology Comment Not Reportable 09/19/18 21:17 RBC Morphology Normal 09/19/18 21:17 Dimorphic RBCs Not Reportable 09/19/18 21:17 Polychromasia Not Reportable 09/19/18 21:17 Hypochromasia Not Reportable 09/19/18 21:17 Poikilocytosis Not Reportable 09/19/18 21:17 Anisocytosis Not Reportable 09/19/18 21:17 Microcytosis Not Reportable 09/19/18 21:17 Macrocytosis Not Reportable 09/19/18 21:17 Spherocytes Not Reportable 09/19/18 21:17 Pappenheimer Bodies Not Reportable 09/19/18 21:17 Sickle Cells Not Reportable 09/19/18 21:17 Target Cells Not Reportable 09/19/18 21:17 Tear Drop Cells Not Reportable 09/19/18 21:17 Ovalocytes Not Reportable 09/19/18 21:17 Helmet Cells Not Reportable 09/19/18 21:17 Vo-Jeffers Bodies Not Reportable 09/19/18 21:17 [place] Rings Not Reportable 09/19/18 21:17 Mckenney Cells Not Reportable 09/19/18 21:17 Bite Cells Not Reportable 09/19/18 21:17 Crenated Cell Not Reportable 09/19/18 21:17 Elliptocytes Not Reportable 09/19/18 21:17 Acanthocytes (Spur) Not Reportable 09/19/18 21:17 Rouleaux Not Reportable 09/19/18 21:17 Hemoglobin C Crystals Not Reportable 09/19/18 21:17 Schistocytes Not Reportable 09/19/18 21:17 Malaria parasites Not Reportable 09/19/18 21:17 Miki Bodies Not Reportable 09/19/18 21:17 Hem Pathologist Commnt No 09/19/18 21:17 D-Dimer 450.74 ng/mlDDU (0-234) H 09/20/18 00:55 Sodium 138 mmol/L (137-145) 09/22/18 04:53 Potassium 3.4 mmol/L (3.6-5.0) L 09/22/18 04:53 Chloride 105.9 mmol/L (98-107) 09/22/18 04:53 Carbon Dioxide 19 mmol/L (22-30) L 09/22/18 04:53 Anion Gap 17 mmol/L 09/22/18 04:53 BUN 7 mg/dL (9-20) L 09/22/18 04:53 Creatinine 0.6 mg/dL (0.8-1.5) L 09/22/18 04:53 Estimated GFR > 60 ml/min 09/22/18 04:53 BUN/Creatinine Ratio 12 % 09/22/18 04:53 Glucose 201 mg/dL (75-100) H 09/22/18 04:53 POC Glucose 190 (70-105) H 09/22/18 07:56 Hemoglobin A1c 13.9 % (4-6) H 09/19/18 Unknown Calcium 8.7 mg/dL (8.4-10.2) 09/22/18 04:53 Phosphorus 3.90 mg/dL (2.5-4.5) 09/19/18 21:58 Magnesium 2.20 mg/dL (1.7-2.3) 09/19/18 21:58 Total Bilirubin 0.40 mg/dL (0.1-1.2) 09/19/18 21:17 Direct Bilirubin < 0.2 mg/dL (0-0.2) 09/19/18 21:17 AST 14 units/L (5-40) 09/19/18 21:17 ALT 11 units/L (7-56) 09/19/18 21:17 Alkaline Phosphatase 143 units/L (35-129) H 09/19/18 21:17 Total Creatine Kinase 115 units/L (55-170) 09/20/18 05:13 CK-MB (CK-2) 3.0 ng/mL (0.0-4.0) 09/20/18 05:13 CK-MB (CK-2) Rel Index 2.6 (0-4) 09/20/18 05:13 Troponin T < 0.010 ng/mL (0.00-0.029) 09/20/18 05:13 Total Protein 9.2 g/dL (6.3-8.2) H 09/19/18 21:17 Albumin 5.0 g/dL (3.9-5) 09/19/18 21:17 Albumin/Globulin Ratio 1.2 % 09/19/18 21:17 Lipase 18 units/L (13-60) 09/19/18 21:17 Urine Color Straw (Yellow) 09/19/18 22:55 Urine Turbidity Clear (Clear) 09/19/18: Urine pH 5.0 (5.0-7.0) 09/19/18: Ur Specific Clifford 1.024 (1.003-1.030) 09/19/18: Urine Protein 100 mg/dl mg/dL (Negative) 09/19/18: Urine Glucose (UA) >=500 mg/dL (Negative) 09/19/18: Urine Ketones 80 mg/dL (Negative) 09/19/18: Urine Blood Mod (Negative) 09/19/18: Urine Nitrite Neg (Negative) 09/19/18: Urine Bilirubin Neg (Negative) 09/19/18: Urine Urobilinogen < 2.0 mg/dL (<2.0) 09/19/18: Ur Leukocyte Esterase Neg (Negative) 09/19/18: Urine WBC (Auto) < 1.0 /HPF (0.0-6.0) 09/19/18: Urine RBC (Auto) 1.0 /HPF (0.0-6.0) 09/19/18: Urine Mucus Few /HPF 09/19/18:
--- NOTE | 2018-09-22 13:41 | Discharge Summary ---
Providers - Providers Date of Admission: 09/19/18 23:28 Date of discharge: 09/22/18 Attending physician: ALEJANDRA THOMAS 09/20/18 01:38 Consult to Physician [CONS] Routine Comment: Consulting Provider: TOMI CARO Physician Instructions: Reason For Exam: CP Primary care physician: PEDIATRIC ALLERGIST Hospitalization Condition: Stable Hospital course: Patient is a 28 yo man with a history of Type 1 DM, dlp and hypertension who pw n/v and epigastric abd pains. Patient has not been taking his Insulin. * pCXR IMPRESSION: No acute cardiopulmonary abnormality. * CTA chest IMPRESSION: No evidence of pulmonary embolus, aortic dissection, or vascular congestion. No acute process in the chest. N/V abd pains, suspect Gastritis, resolved: treat symptomatically with PPI and IV antiemetics prn DKA, acidosis resolved, stop drip and start basal/bolus regimen Hypokalemia: replete and recheck in am Metabolic acidosis severe: treat with ivf, iv insulin, repeat bmp SIRS with leukocytosis, negative cxr, ua unremarkable for uti, will repeat cbc Chest pain, atypical, GERD/gastritis related most likely, resolved DVT prophylaxis: sq lovenox Noncompliance: counseling done Disposition; continue inpatient care, d/c once Cleared by fundraiser, ECHO pending (evaluate EF and heart murmur) Disposition: DC TO HOME OR SELFCARE Time spent for discharge: 34 minutes Core Measure Documentation - Palliative Care Palliative Care/ Comfort Measures: Not Applicable - Core Measures Any of the following diagnoses?: none - VTE Discharge Requirements Deep Vein Thrombosis/Pulmonary Embolism Present on Admission: No Has pt received <5 days of overlap therapy or INR<2.0: No Anticoagulant overlap therapy prescribed at discharge: No Contraindication No Overlap Therapy order at DC: Drug Interaction Exam - Physical Exam Narrative exam: GEN: WDWN, NAD, Awake, Alert, Orientated x 3 HEENT: NCAT, EOMI, PERRL, OP Clear NECK: supple, no adenopathy, no thyromegaly, no JVD CVS/HEART: RRR, normal S1S2, pulses present bilaterally CHEST/LUNGS: CTA B, Symmetrical chest expansion, good air entry bilaterally GI/Abdomen: soft, NTND, good bowel sounds, no guarding or rebound /Bladder: no suprapubic tenderness, no CVA or paraspinal tenderness EXT/Skin: no c/c/e, no obvious rash MSK: FROM x 4 Neuro: CN 2-12 grossly intact, no new focal deficits - Constitutional Vitals: Temp Pulse Resp BP Pulse Ox 98.8 F 62 20 136/84 100 09/22/18 11:57 09/22/18 11:57 09/22/18 11:57 09/22/18 11:57 09/22/18 11:57 Plan Activity: other (no strenous activity until cleared by pcp) Diet: diabetic Special Instructions: record blood sugar diary (three times a day with meals) Follow up with: PRIMARY MD VANESSA [Primary Care Provider] - 7 Days TOMI CARO MD [Staff Physician] - 7 Days Prescriptions: Insulin NPH/Regular [NovoLIN 70/30] 26 unit SUB-Q BIDDIAB #100 units Insulin Regular, Human [Novolin R] 1 units SUB-Q TIDAC PRN #1 vial PRN Reason: Hyperglycemia
[2018-09-22 17:44] VITALS: BP 148/86
== END 2018-09-22 19:30 | disposition home or self-care (01) | DRG 391 ==
LOC: ED 20:53 → CC1 23:28 → 3A 09-21 14:01
PROVIDERS: ADMIT Internal Medicine; ATTEND Internal Medicine
DX: K29.70 Gastritis, unspecified, without bleeding (principal); E10.10 Type 1 diabetes mellitus with ketoacidosis without coma; F17.200 Nicotine dependence, unspecified, uncomplicated; K21.9 Gastro-esophageal reflux disease without esophagitis; E87.6 Hypokalemia; I10 Essential (primary) hypertension; Z82.49 Family history of ischemic heart disease and other diseases of the circulatory system; Z83.3 Family history of diabetes mellitus; Z79.4 Long term (current) use of insulin; Z79.899 Other long term (current) drug therapy; Z91.14 Patient's other noncompliance with medication regimen; Z71.89 Other specified counseling
CPT/HCPCS: 36415; 71045; 71275; 76705; 80048; 80074; 81001; 82550; 82553; 82962; 83036; 83690; 83735; 84100; 84484; 85007; 85025; 85027; 85379; 87040; 93005; 93010; 93306; 96361; 96365; 96375; 99406; J1650; J1815; J2270; J2405; J2543; J7030; Q9967